=== PATIENT | female | born 1990 | race Two or more races ===

== ENCOUNTER 2024-07-08 12:05 | Outpatient (OUT) | payer OTHER, SELFPAY ==
[2024-07-08 12:40] LABS: Ammonia 24 umol/L (11-32); Basophils Absolute Auto 0.1 10^3/uL (0.0-0.1); Basophils Percent Auto 1.4 % (0.2-2.0); Eosinophils Absolute Auto 0.1 10^3/uL (0.0-0.7); Hematocrit 27.5 % (36.0-48.0); Hemoglobin 9.5 g/dL (12.0-16.0); Immature Granulocytes Pct Auto 2.8 % (0.0-0.5); Lymphocytes Absolute Auto 0.7 10^3/uL (1.2-3.8); Lymphocytes Percent Auto 20.7 % (20.5-60.0); Mean Corpuscular HGB Conc 34.5 g/dL (29.9-35.2); Mean Corpuscular Hemoglobin 36.1 pg (26.7-34.0); Mean Corpuscular Volume 104.6 fL (81.0-99.0); Mean Platelet Volume 10.8 fL (9.5-13.5); Monocytes Absolute Auto 0.7 10^3/uL (0.3-0.8); Monocytes Percent Auto 18.5 % (1.7-12.0); Neutrophils Absolute Auto 1.9 10^3/uL (1.4-6.5); Neutrophils Percent Auto 54.6 % (43.0-75.0); Platelet Count 53 10^3/uL (150-450); Red Blood Count 2.63 10^6/uL (4.20-5.40); Red Cell Distribution Width 11.9 % (11.0-15.0); White Blood Count 3.5 10^3/uL (4.0-11.0)
[2024-07-08 12:48] LABS: INR 1.25; Partial Thromboplastin Time 28.4 sec (22.3-36.2)
[2024-07-08 14:09] LABS: Alanine Aminotransferase 50 U/L (14-59); Albumin Globulin Ratio 0.8; Albumin Level 3.2 g/dL (3.4-5.0); Alkaline Phosphatase 188 U/L (46-116); Amylase 61 U/L (25-115); Anion Gap 8.8; Aspartate Amino Transferase 90 U/L (15-37); BUN Creatinine Ratio 6.1; Bilirubin Total 2.8 mg/dL (0.2-1.0); Calcium 8.6 mg/dL (8.5-10.1); Carbon Dioxide 30.7 mmol/L (21.0-32.0); Chloride 95 mmol/L (98-107); Estimated GFR (African America >60 (>=60 mL/min/1.73m^2); Estimated GFR (Non-African Ame >60 (>=60 mL/min/1.73m^2); Globulin 4.2 g/dL; Glucose 88 mg/dL (74-106); Magnesium 1.2 mg/dL (1.8-2.4); Potassium 4.5 mmol/L (3.5-5.1); Sodium 130 mmol/L (136-145); Thyroid Stimulating Hormone 1.704 uIU/mL (0.358-3.740); Total Protein 7.4 g/dL (6.4-8.2)
[2024-07-08 14:55] LABS: Gamma Glutamyl Transpeptidase 1646 U/L (8-55)
[2024-07-09 05:07] LABS: HIV Ab/p24 Ag Screen Non Reactive (Non Reactive)
== END 2024-07-08 12:06 | disposition home or self-care (01) ==
LOC: LAB 12:11
PROVIDERS: PCP Nurse Practitioner Primary Care; Visit Provider Nurse Practitioner Primary Care
DX: R17 Unspecified jaundice (principal); R10.84 Generalized abdominal pain
CPT/HCPCS: 36415; 80053; 82140; 82150; 82977; 83690; 83735; 84443; 85025; 85610; 85730; 87389